=== PATIENT | male | born 1980 | race Caucasian/White ===

== ENCOUNTER 2021-03-26 19:27 | Emergency (ER) | payer OTHER | END 2021-03-26 20:27 | disposition left against medical advice (07) | LOC: CSHERS 19:27 | DX: Z53.21 Procedure and treatment not carried out due to patient leaving prior to being seen by health care provider (principal) ==

== ENCOUNTER 2021-04-13 14:49 | Emergency (ER) | payer OTHER | END 2021-04-13 17:42 | disposition left against medical advice (07) | LOC: CSHERS 14:49 | DX: Z53.21 Procedure and treatment not carried out due to patient leaving prior to being seen by health care provider (principal) ==

== ENCOUNTER 2021-09-29 15:21 | Emergency (ER) | payer OTHER ==
[2021-09-29] MEDS ORDERED: traMADol HCl 50 MG TAB ONE (16:13)
== END 2021-09-29 16:08 | disposition home or self-care (01) ==
LOC: CSHERS 15:21
DX: K02.9 Dental caries, unspecified (principal)
CPT/HCPCS: 99282

== ENCOUNTER 2022-05-21 20:21 | Emergency (ER) | payer OTHER ==
[2022-05-21 22:16] LABS: SARS-CoV-2 NAA Rapid Test Not Detected (NotDetected)
== END 2022-05-21 22:27 | disposition home or self-care (01) ==
LOC: CSHERS 20:21
DX: B34.9 Viral infection, unspecified (principal); Z20.822 Contact with and (suspected) exposure to COVID-19
CPT/HCPCS: 71045